=== PATIENT | female | born 1970 | race Two or more races ===

== ENCOUNTER → 2016-07-05 | Outpatient (CLI) | payer MEDICAID ==
[~2016-07-05] MED LIST: GADOBUTROL 10 ML VIAL IVP ONE
--- NOTE | 2016-07-05 11:20 | MR ---
MRI Bilateral Breasts Without and With Contrast History: Family history of breast cancer. ICD-10 code Z80.9. Screening. Technique: Precontrast sagittal fat-saturated T2-weighted and Vibrant images of both breasts are obt ained. Subsequently, during intravenous administration of 6 mL of Gadavist, multiphasic sagittally a cquired Vibrant MR images through both breasts are obtained. Data is sent to the independent Conf[employer] a workstation for additional analysis including 3D reconstruction, computer-aided detection (CAD), an d color-coded phase contrast enhancement evaluation. Comparison: Mammography July 2015. Findings: There is moderate background fibrocystic enhancement in both breasts which diminishes sensi tivity and specificity. There is, however, no evidence of mass or abnormal enhancement to indicate in vasive breast carcinoma. No suspicious internal mammary or axillary lymph nodes. Impression: Benign. BI-RADS: 2. Recommend continued annual screening mammography.
== END ==
LOC: FIMAGING 08:05
PROVIDERS: ATTEND Family Medicine
DX: Z12.39 Encounter for other screening for malignant neoplasm of breast (principal); Z80.3 Family history of malignant neoplasm of breast
CPT/HCPCS: 0159T; A9585; C8908